=== PATIENT | male | born 1985 | race American Indian/Alaskan Native ===

== ENCOUNTER 2017-02-10 01:51 | Emergency (ER) | payer OTHER ==
[2017-02-10 02:03] VITALS: BP 144/78
[2017-02-10] MEDS ORDERED: XYLOCAINE 1% 20 mL INFILTRATI ONE (04:34)
[2017-02-10] MEDS ORDERED: NORCO 5/325 PO ONE (04:41)
[2017-02-10] MEDS ORDERED: BOOSTRIX IM ONE (04:41)
--- NOTE | 2017-02-10 05:03 | Emergency Department Report ---
- General Chief Complaint: Wound/Laceration Stated Complaint: CUT HAND Time Seen by Provider: 02/10/17 04:14 Source: patient Mode of arrival: Ambulatory Limitations: No Limitations - History of Present Illness Initial Comments: 31-year-old male with no stiffness past medical history presents to the hospital with complaints of laceration to the pain. Patient is right-hand dominant. A a glass bottle containing alcoholic beverage broke causing laceration to several fingers on the palmar surface of his hand. Bleeding is controlled. Pain is rated a 5/10 in intensity, constant, worse with palpation. Full range of motion reported. Tetanus status unknown. - Related Data Previous Rx's Medication Instructions Recorded Last Taken Type Acetaminophen/Codeine [Tylenol #3] 1 tab PO Q6H PRN #16 tab 12/22/14 Unknown Rx Cyclobenzaprine [Flexeril 10 MG 10 mg PO Q8H PRN #21 tablet 12/22/14 Unknown Rx TAB] Allergies Allergy/AdvReac Type Severity Reaction Status Date / Time No Known Allergies Allergy Verified 12/22/14 16:44 ED Review of Systems ROS: Stated complaint: CUT HAND Other details as noted in HPI Comment: All other systems reviewed and negative Other: Constitutional: No fevers chills or weight loss Eyes: No eye pain visual changes or discharge ENT: No ear pain or throat pain Neck: Denies pain Respiratory: Denies cough wheezing shortness of breath GI: Denies abdominal pain, nausea, vomiting, diarrhea : Denies dysuria, urinary frequency, or urgency Musculoskeletal: Denies back pain, joint swelling Skin: As per HPI Neurologic: Denies headache, numbness, weakness Psychiatric: Denies suicidal ideation, hallucinations ED Past Medical Hx - Past Medical History Hx Hypertension: No Hx CVA: No Hx Heart Attack/AMI: No Hx Congestive Heart Failure: No Hx Diabetes: No Hx Deep Vein Thrombosis: No Hx Pulmonary Embolism: No Hx GERD: No Hx Liver Disease: No Hx Renal Disease: No Hx Sickle Cell Disease: No Hx Arthritis: No Hx Headaches / Migraines: No Hx Seizures: No Hx Kidney Stones: No Hx Psychiatric Treatment: No Hx Asthma: No Hx COPD: No Hx Tuberculosis: No Hx Dementia: No Hx HIV: No - Surgical History Hx Coronary Stent: No Hx Open Heart Surgery: No Hx Pacemaker: No Hx Internal Defibrillator: No Hx Cholecystectomy: No Hx Appendectomy: No Hx Breast Surgery: No Additional Surgical History: abdominal hernia @ age 3 - Social History Smoking Status: Current Every Day Smoker Substance Use Type: Alcohol, Marijuana - Medications Home Medications: Home Medications Medication Instructions Recorded Confirmed Last Taken Type Acetaminophen/Codeine [Tylenol #3] 1 tab PO Q6H PRN #16 tab 12/22/14 Unknown Rx Cyclobenzaprine [Flexeril 10 MG 10 mg PO Q8H PRN #21 tablet 12/22/14 Unknown Rx TAB] ED Physical Exam - General Limitations: No Limitations - Other Other exam information: General: No limitations, patient is alert in no acute distress Head exam: Atraumatic, normocephalic Eyes exam: Normal appearance, pupils equal reactive to light, extraocular movements intact ENT: Moist mucous membrane, normal oropharynx Neck exam: Normal inspection, full range of motion, no meningismus nontender Respiratory exam: Clear to auscultation bilateral, no wheezes, rales, crackles Cardiovascular: Normal rate and rhythm, normal heart sounds Abdomen: Soft, nondistended, and nontender, with normal bowel sounds, no rebound, or guarding Extremity: Full range of motion, left palmar surface of her hand. Laceration to palmar surface of left hand 1.5 cm at fourth finger and at fifth finger. Back: Normal Inspection, full range of motion, no tenderness Neurologic: Alert, oriented x3, cranial nerves intact, no motor or sensory deficit Psychiatric: normal affect, normal mood Skin: Warm, dry, intact ED Course Vital Signs 02/10/17 01:59 Temperature 97 F L Pulse Rate 82 Respiratory 18 Rate Blood Pressure 144/78 O2 Sat by Pulse 99 Oximetry - Laceration /Wound Repair Left Hand Wound Length (cm): 1 (1.5cm) Wound's Depth, Shape: linear Wound Explored: no foreign body removed Irrigated w/ Saline (ccs): 250 Betadine Prep?: Yes Anesthesia: 1% Lidocaine Wound Repaired With: sutures Suture Size/Type: 4:0, proline Layer Closure?: No Sterile Dressing Applied?: Yes Progress: Patient had 2 wounds repaired. Each 1.5 cm. Fourth finger laceration more superficial than the wound on the fifth finger. Wound explored and no foreign body visualized. Irrigated with normal saline prior to repair. 4th finger laceratoin required 3 sutures. 5th finger laceration required 4 sutures. ED Medical Decision Making - Radiology Data Radiology results: report reviewed Left hand x-ray: Faint density at the distal and radial aspect of the fourth proximal phalanx. This may represent a foreign body or atraumatic in nature. Clinical radiologist evaluation to decide could be considered for further evaluation. - Medical Decision Making Patient informed the x-ray shows a small possible foreign body although no visualized doing wound examination. Also foreign body is on the lateral radial side over the fourth finger and laceration did not extend to the lateral surface of the finger. Wound was irrigated and repaired. Outpatient follow-up will be encouraged with orthopedics.. - Differential Diagnosis laceration, fb, tendon injury Critical Care Time: No Critical care attestation.: If time is entered above; I have spent that time in minutes in the direct care of this critically ill patient, excluding procedure time. ED Disposition Clinical Impression: Finger laceration, Foreign body Disposition: [id number] TO HOME OR SELFCARE Is pt being admited?: No Does the pt Need Aspirin: No Condition: Stable Instructions: Laceration (ED), Soft Tissue Foreign Body (ED) Additional Instructions: There is a possibility that a small foreign body may be present at the fourth finger. Wound was irrigated well prior to repair and no foreign body was visualized. Follow-up with orthopedics is recommended for further evaluation. Return in 7-10 days for stitches removal. He may follow up here, with the primary care doctor, or the orthopedic doctor. Please return if symptoms worsen or signs of infection Referrals: DIANNA HOWARD MD [Staff Physician] - 7-10 days Time of Disposition: 05:53
[2017-02-10] MEDS ORDERED: NACL 0.9% 500 ML IR ONE (05:11)
[2017-02-10] MEDS ORDERED: NACL 0.9% IR ONE (05:11)
--- NOTE | 2017-02-10 05:15 | XRay Report ---
FINAL REPORT EXAM: XR HAND 3+V LT HISTORY: lac to 4th, 5th finger r/o glass FB COMPARISONS: None. FINDINGS: Three views left hand On oblique and AP views, there is a 2 millimeter faint density projecting at the radial and distal aspect of the 4th proximal phalanx. No bone lesion, periosteal reaction, or fracture. No deformity or gross malalignment. IMPRESSION: There is a faint 2 millimeter density at the distal and radial aspect of the 4th proximal phalanx, which may represent a foreign body or be atraumatic in nature. Clinical and radiographic follow-up and/or targeted ultrasound could be considered for further evaluation.
== END 2017-02-10 06:20 | disposition home or self-care (01) ==
LOC: ED 01:51
DX: S61.225A Laceration with foreign body of left ring finger without damage to nail, initial encounter (principal); S61.227A Laceration with foreign body of left little finger without damage to nail, initial encounter; F12.10 Cannabis abuse, uncomplicated; F17.200 Nicotine dependence, unspecified, uncomplicated; W25.XXXA Contact with sharp glass, initial encounter; Y93.89 Activity, other specified; Y99.8 Other external cause status; Y92.89 Other specified places as the place of occurrence of the external cause
CPT/HCPCS: 90471; 90715; 99283